=== PATIENT | female | born 1945 | race Caucasian/White ===

== ENCOUNTER 2024-12-09 07:45 | Inpatient (IN) | payer OTHER ==
[2024-12-09] VITALS (12 sets, daily range): BP systolic 91–100; BP diastolic 50–54; PULSE 78–96; RESP 16–21; TEMP 96–97.9; O2SAT 91–100
[~2024-12-09] VITALS: Ht 167.6 cm; Wt 52.3 kg
--- NOTE | 2024-12-09 08:03 | ELECTROCARDIOGRAPH REPORT ---
[facility] Test Date: 2024-12-09 Test Time: 08:00:32 Pat Name: MALLORY HERNANDEZ Department: SHORT STAY 1ST FLOOR Room: ED 1 Gender: F Cw Operator: NAOMI : 1945 Requested By: INDERJIT FISH Order Number: [id number] Reading MD: Dr. Cheryl Lyons Measurements Intervals [place] Rate: 92 P: 82 WA: 119 QRS: 72 QRSD: 126 T: 32 QT: 384 QTc: 476 Interpretive Statements Sinus rhythm Borderline short WA interval Consider right atrial enlargement IVCD, consider atypical LBBB Electronically Signed On 12-09-2024 13:16:[address] Cheryl Lyons Please click the below link to view image of tracing.
--- NOTE | 2024-12-09 08:04 | Physician Documentation ---
History of Present Illness ~ Chief Complaint: Shortness of Breath Stated Complaint: COUGH Time Seen by MD: 07:54 HPI 79-year-old female who presents to the emergency department complaining of cough and congestion, patient has some discomfort in the right chest, history of sm oking without diagnosis of COPD or asthma, she has had symptoms for several days with increasing cough and shortness of breath. Timing/Duration: days Severity: moderate Activities at Onset: light exertion Risk Factors: none History Of: COPD, not using steroids; Denies: currently on inhaled B2, currently on steroids, not using inhaled B2 Prehospital Care: no prehospital care Prior Episode/Exposure: no prior episodes Modifiying Factors: Improves with: exertion Associated Symptoms: cough Discomfort Quality/Severity: moderate Chest Pain Location: chest Cough Severity: Reports: mild Medication Reconciliation Allergies: Coded Allergies: lactose (Verified Allergy, Severe, 12/09/24) Scheduled Amlodipine Besylate (Amlodipine Besylate), 1 TAB PO DAILY, (Reported) Atorvastatin Calcium (Atorvastatin Calcium), 1 TAB PO DAILY, (Reported) Miscellaneous Medications Lisinopril/Hydrochlorothiazide (Lisinopril-Hctz 20-12.5 mg Tab), 10 MG PO, (Reported) Discontinued Medications Lisinopril (Lisinopril), 1 TAB PO DAILY, (Reported) Discontinued Reason: Other Review of Systems All Other Systems at this time: Reviewed and Negative Constitutional: Reports: see HPI Respiratory: Reports: cough, shortness of breath, SOB with exertion, SOB at rest Cardiovascular: Reports: chest pain Physical Exam Vital Signs: Temperature: 99.9, Source: Oral, Heart Rate: 100, Respiratory Rate: 18, BP: 127/67, Pulse Oximetry: 93, Weight: 52.270 Oxygen Flow Rate: 4.0 Pulse Oximetry Reflects: hypoxemia General Appearance: alert, ill-appearing, moderate distress Neck: normal inspection EENT: normal ENT inspection Respiratory: respiratory distress, wheezing Chest: no accessory muscle use Cardiovascular: tachycardia Extremities: normal inspection Skin: pallor Psychiatric: appropriate Lymphatic: no adenopathy Sepsis Screening Reassessment Date: December 09, 2024 Reassessment Time: 08:03 Vitals Signs Review 8:04 a.m. Cardiology Exam: tachycardia Progress Results/Orders Results/Orders Orders - INDERJIT FISH DO Chest,Single View (12/09/24 07:57) Monitor (12/09/24 07:57) Saline Lock (12/09/24 07:57) Oxygen (12/09/24 07:57) Electrocardiogram (12/09/24 07:57) Covid19 Binax Poc Result Entry (12/09/24 07:57) * Rt Notification Q1H (12/09/24 07:59) Culture Blood (12/09/24 08:51) Page Hospitalist (12/09/24 08:57) Fill Out Med Reconciliation (12/09/24 08:57) Completed Orders - INDERJIT FISH DO Chest,Single View (12/09/24 07:57) Cbc/Diff (12/09/24 07:57) PBNP (12/09/24 07:57) Electrocardiogram (12/09/24 07:57) CMP (12/09/24 07:57) Hs Troponin I W Calculations (12/09/24 07:57) Hs Troponin I W Calculations (12/09/24 09:57) Hs Troponin I W Calculations (12/09/24 10:57) Albuterol 2.5mg/3ml Nebule (Proventil 2. (12/09/24 08:00) Ipratropium Nebule (Atrovent Nebule) (12/09/24 08:00) Ceftriaxone/D4h-Ndygxvev 1gm (Rocephin 1 (12/09/24 08:55) Azithromycin Tablet (Zithromax Tablet) (12/09/24 08:55) Lacticsepsis (12/09/24 08:51) Furosemide Inj (Lasix Inj) (12/09/24 08:55) Lactic,2hr (12/09/24 10:35) Medications Received in ER Medications (Trade) Dose Ordered Sig/Claudia Route PRN Reason Start Time Stop Time Status Last Admin Dose Admin Sodium Chloride 1,000 ml @ 100 mls/hr Q10H IV 12/09/24 10:45 12/09/24 11:19 100 MLS/HR Vital Signs 12/09/24 12/09/24 12/09/24 12/09/24 07:46 07:59 08:00 08:07 Temp 99.9 Pulse 97 100 99 Resp 25 18 20 B/P (MAP) 121/101 127/67 (87) 127/67 (87) Pulse Ox 92 93 91 O2 Flow Rate 4.0 4.0 12/09/24 12/09/24 12/09/24 12/09/24 08:29 08:37 09:00 10:00 Pulse 86 85 90 95 Resp 21 16 24 18 B/P (MAP) 108/41 (63) 98/64 (75) Pulse Ox 97 100 96 94 O2 Delivery Room Air* Room Air* O2 Flow Rate 0 0 4.0 4.0 FiO2 21 21 12/09/24 10:40 Pulse 90 Resp 24 B/P (MAP) 98/64 (75) Pulse Ox 96 O2 Flow Rate 4.0 Laboratory Tests Test 12/09/24 08:00 12/09/24 08:19 12/09/24 09:02 White Blood Count 16.4 H Red Blood Count 4.64 Hemoglobin 14.1 Hematocrit 41.5 Mean Corpuscular Volume 89.5 Mean Corpuscular Hemoglobin 30.3 Mean Corpuscular Hemoglobin Concent 33.8 Red Cell Distribution Width 14.3 Platelet Count 224 Mean Platelet Volume 8.7 Neutrophils (%) (Auto) 86.7 H Lymphocytes (%) (Auto) 4.3 L Monocytes (%) (Auto) 8.7 Eosinophils (%) (Auto) 0.1 Basophils (%) (Auto) 0.2 Neutrophils # (Auto) 14.2 H Lymphocytes # (Auto) 0.7 L Monocytes # (Auto) 1.4 H Eosinophils # (Auto) 0.0 Basophils # (Auto) 0.0 CBC Comment Sodium Level 132 L Potassium Level 3.6 Chloride Level 94 L Carbon Dioxide Level 29.4 Anion Gap 9 Blood Urea Nitrogen 10 Creatinine 0.98 H Estimated GFR/1.73 m2 55 BUN/Creatinine Ratio 10.2 Glucose Level 133 H Calcium Level 9.1 Total Bilirubin 0.8 Aspartate Amino Transf (AST/SGOT) 21 Alanine Aminotransferase (ALT/SGPT) 26 Alkaline Phosphatase 103 Troponin I High Sensitivity 27 27 Pro-B-Type Natriuretic Peptide 1093 H Total Protein 7.1 Albumin 3.2 L Globulin 3.9 Albumin/Globulin Ratio 0.8 L Chemistry Comments SARS-CoV-2 Antigen (Rapid) Negative Prothrombin Time 10.9 INR International Normalized Ratio 1.1 Activated Partial Thromboplast Time 31 D-Dimer 0.97 H D-Dimer Comment Coagulation Comments Hemoglobin A1c 5.8 Lactic Acid Level 2.3 H Phosphorus Level 2.3 Magnesium Level 1.8 Troponin I High Sens Percent Delta 0 Troponin I Hi Sens Absolute Change 0 Microbiology Date/Time Source Procedure Growth Status 12/09/24 09:08 Blood Arm Left Blood Culture - Preliminary NEGATIVE (LESS THAN 24 HOURS) Resulted Re-Evaluation Re-evaluation : Progress Elevated BNP, troponin and repeat troponin pending as is BNP x-rays has not been performed yet. Suspect this is secondary to demand ischemia in the setting of likely pneumonia with CHF. Await for repeat troponin Elevated BNP 1093, troponin 27, x-ray appears to have a right lower lobe infiltrate hypoxemia improved after DuoNeb and oxygen, plan is to have the patient admitted to the hospital for hypoxic respiratory failure in the setting of the acute pneumonia, she was given a dose of Lasix in the emergency department as well for the elevated BNP presuming there could be some underlying heart failure as well. Plan is to admit to the hospital for further evaluation including treatment for pneumonia with hypoxic respiratory failure. EKG/XRAY/CT/US/VASC/MRI EKG : Indication: shortness of breath Additional Comment Sinus rhythm rate of 92, normal axis, low voltage, wide complex QRS, consider left bundle branch block, Q-wave in aVL, repolarization abnormality in V3 V2 ST depressions in lead three and AVF consider inferior ischemia. Abnormal EKG. Chest X-Ray : Additional Comments [address] [address] DIAGNOSTIC RADIOLOGY Patient: MALLORY HERNANDEZ Medical Record: [id number] [facility] : 1945, Age: 79 Sex: Female Location: ER Patient Status: REG ER Service Date/Time: 12/09/24 0757 Ordering Physician: INDERJIT FISH DO Exam: CHEST,SINGLE VIEW DI CHEST,SINGLE VIEW, HISTORY: CP COMPARISON: None None TECHNICAL DATA: 1 view of the chest was obtained. FINDINGS: Lines and tubes: None Cardiomediastinal silhouette: normal Pulmonary vasculature: normal Lung expansion: normal Lung airspace: normal Lung interstitium: normal Pleura: normal Pneumothorax: no Bones: Unremarkable Other: no IMPRESSION: No acute intrathoracic abnormality. Electronically Signed by:ADAM WHITE MD Date & Time: 12/09/24828 Dictated by: ADAM WHITE MD Dictation date and time: 12/09/24815 Primary Care Provider: NO PRIMARY CARE PROVIDER cc: INDERJIT FISH DO ~ Heart Score: Heart Score Response (Comments) Value History Moderate Suspicious 1 EKG Repolarization Disturb 1 Age >65 2 Risk Factors No known risk factors 0 Troponin Normal limit 0 Total 4 Medical Decision Making Differential Dx:Considerations: Include: asthma, bronchitis, CHF, COPD Departure Disposition: 09 ADMITTED INPATIENT Impression: Primary Impression: Pneumonia Condition: Guarded Referrals: NO PRIMARY CARE PROVIDER (PCP) Critical Care Note Total Time (mins): 40 Critical Care Note Critical care time exclusive of all other billable procedures critical care time spent managing impending respiratory failure in the setting of hypoxemia and possible acute heart failure, critical care time spent managing lab abnormalities impending respiratory failure. Signature Scribe Signature: None Attestation: Dictated by myself INDERJIT FISH DO December 09, 2024 08:04
[2024-12-09 08:19] LABS: BASOPHILS % (AUTO) 0.2 % (0-1); EOSINOPHILS % (AUTO) 0.1 % (0-6); HEMATOCRIT 41.5 % (35.0-45.0); HEMOGLOBIN 14.1 g/dl (12.0-16.0); LYMPHOCYTES # (AUTO) 0.7 X10'3 (1.1-4.8); LYMPHOCYTES % (AUTO) 4.3 % (21-51); MEAN CORPUSCULAR HEMOGLOBIN 30.3 PG (27.0-31.0); MEAN CORPUSCULAR HGB CONC 33.8 g/dL (33.0-36.5); MEAN CORPUSCULAR VOLUME 89.5 FL (78-98); MEAN PLATELET VOLUME 8.7 FL (7.4-10.4); MONOCYTES # (AUTO) 1.4 X10'3 (0-0.9); MONOCYTES % (AUTO) 8.7 % (2-12); NEUTROPHILS # (AUTO) 14.2 X10'3 (1.8-7.7); NEUTROPHILS % (AUTO) 86.7 % (42-75); PLATELET COUNT 224 X10'3 (140-440); RED BLOOD COUNT 4.64 X10'6 (4.20-5.60); RED CELL DISTRIBUTION WIDTH 14.3 % (11.5-14.5); WHITE BLOOD COUNT 16.4 X10'3 (4.5-11.0)
[2024-12-09] MEDS: albuterol 2.5 MG/3 ML nebule NEB ONE (08:28)
[2024-12-09] MEDS: ipratropium 0.5 MG/2.5ML nebule IH ONE (08:28)
[2024-12-09 08:30] LABS: ALANINE AMINOTRANSFERASE 26 U/L (12-78); ALBUMIN 3.2 G/DL (3.4-5.0); ALBUMIN/GLOBULIN RATIO 0.8 (1.1-1.5); ALKALINE PHOSPHATASE 103 IU/L (46-116); ANION GAP 9 (8-16); ASPARTATE AMINO TRANSFERASE 21 U/L (10-37); BILIRUBIN,TOTAL 0.8 MG/DL (0.1-1.0); BLOOD UREA NITROGEN 10 MG/DL (7-18); BUN/CREATININE RATIO 10.2 (10.0-20.0); CALCIUM 9.1 MG/DL (8.5-10.1); CHLORIDE 94 MMOL/L (99-107); CREATININE 0.98 MG/DL (0.40-0.90); GLUCOSE 133 MG/DL (70-104); POTASSIUM 3.6 MMOL/L (3.5-5.1); SODIUM 132 MMOL/L (135-145); TOTAL CARBON DIOXIDE 29.4 MMOL/L (24-32); TOTAL PROTEIN 7.1 G/DL (6.4-8.2); eCRCL 39 ML/MIN; eGFR 55 ML/MIN
--- NOTE | 2024-12-09 08:31 | RADIOLOGY REPORT ---
DI CHEST,SINGLE VIEW, HISTORY: CP COMPARISON: None None TECHNICAL DATA: 1 view of the chest was obtained. FINDINGS: Lines and tubes: None Cardiomediastinal silhouette: normal Pulmonary vasculature: normal Lung expansion: normal Lung airspace: normal Lung interstitium: normal Pleura: normal Pneumothorax: no Bones: Unremarkable Other: no IMPRESSION: No acute intrathoracic abnormality.
[2024-12-09 08:37] LABS: PRO BRAIN NATRIURETIC PEPTIDE 1093 PG/ML (0-450)
[2024-12-09] MEDS: furosemide 10 MG/1 ML 10ml inj IV ONE (09:07)
[2024-12-09] MEDS: azithromycin 250mg tablet PO ONE (09:07)
[2024-12-09] MEDS: CefTRIAXone/D5W-Rocephin 1gm 50 ML IV ONE (09:08)
[2024-12-09] MEDS ORDERED: ATOR20TA66 PO (09:14)
[2024-12-09] MEDS ORDERED: AMLO5TAB16 PO (09:14)
[2024-12-09] MEDS ORDERED: LISI1TAB51 PO (09:14)
[2024-12-09] MEDS ORDERED: LISI20TA28 PO (09:14)
--- NOTE | 2024-12-09 09:18 | HISTORY AND PHYSICAL ---
History & Physical Providers to Complaint, cough shortness of breath fever ~ History of Present Illness Reason for Admit\Complaint: As above History of Present Illness This is a 79-year-old female , with history of chronic tobacco abuse including currently, history of COPD secondary to tobacco abuse, history of chronic kidney disease CHF ejection fraction unknown, hypertension poor control, dyslipidemia, malnutrition BMI 18, presented today to emergency department chief complaint cough associated with fever and shortness of breath; in addition this is the patient, who presents to the emergency department complaining of cough and congestion, patient has some discomfort in the right chest, history of smoking without diagnosis of COPD or asthma, she has had symptoms for several days with increasing cough and shortness of breath., Timing/Duration: days, Severity: m oderate, Activities at Onset: light exertion Risk Factors: none, History Of: COPD, not using steroids; Denies: currently on inhaled B2, currently on steroids, not using inhaled B2, Prehospital Care: no prehospital care Prior Episode/Exposure: no prior episodes, Modifiying Factors: Improves with: exertion Discomfort Quality/Severity: moderate, Chest Pain Location: chest, Cough Severity: Reports: mild. In emergency department she was evaluated by physician was diagnosed with COPD in exacerbation hyponatremia chronic kidney disease CHF hypertension dyslipidemia chronic tobacco abuse including currently, malnutrition and decision was made to admit patient for further evaluation and treatment patient started on IV antibiotics steroids, no additional complaint or concern. Allergies: Coded Allergies: No Known Allergies (Unverified , 12/09/24) Active prescriptions I reviewed reconciled Home Medications Home Medications Active Reported Lisinopril-Hctz 20-12.5 mg Tab (Lisinopril/Hydrochlorothiazide) 20 Mg-12.5 Mg Tablet 10 Mg PO Atorvastatin Calcium 20 Mg Tablet 1 Tab PO DAILY Amlodipine Besylate 5 Mg Tablet 1 Tab PO DAILY Past Medical History Past Medical History As in HPI Past Surgical History Surgical History Comment As in HPI Past Social History Social History Comment Positive for chronic tobacco abuse including currently, deny alcohol illicit drug use, live with the family good social support Health Maintenance Health Maintenance Noncontributory ROS ROS Constitutional : Positive for fever , no chills, or weakness. No diaphoresis. Allergic/Immunologic, no lymphadenopathy, no hives, no skin eruptions. Eyes, no recent visual changes, no eye pain, no photophobia. Ears, nose, mouth, throat, no sore throat, no nosebleed, no ear pain. Cardiovascular, no palpitations, skipped beats, chest pain, no peripheral edema, Respiratory, patient has dyspnea, orthopnea, cough, no hemoptysis, chest wall pain. Gastrointestinal, no abdominal pain, nausea, vomiting, constipation or diarrhea. : no dysuria, hematuria, pelvic pain, urethral d/c. Endocrine, no polyuria, polydipsia, recent unintentional weight gain or loss. Hematologic/Lymphatic, no petechiae, no enlarged lymph nodes, no bone pain. Integumentary, no rash, no skin lesions, Musculoskeletal, no muscle aches, or pain, no muscle cramps, no recent change in gait Neurological, no dizziness, no headache, no syncope, no paresthesia. Psychiatric, no delusions, visual hallucinations, or hearing hallucinations. ROS - in rest is as in HPI. Exam Vitals: Vital Signs Date Time Temp Pulse Resp B/P (MAP) Pulse Ox O2 Delivery O2 Flow Rate FiO2 12/09/24 08:37 85 16 100 Room Air* 0 21 12/09/24 08:07 12/09/24 07:46 99.9 Vital signs, stable ,afebrile. Pulse Oximetry reflects adequate oxygenation. BMI is 18, weight 52 kg General: well developed, well nourished. Awake , alert, and oriented x4, resting comfortably in the bed, in no acute distress . Skin: Warm, dry, no pallor, no rash or petechiae. HEENT: Atraumatic, normocephalic, EOMI, anicteric sclera B; pink conjunctiva; PERRLA, normal oropharynx, moist oral and nasal mucosa. Tympanic membrane , nose , throat clear. Neck: Trachea midline. Supple, full range of motion, no JVD, bruit , hepatojugular reflex , lymphadenopathy or masses, or other lesions Cardiac: Regular rhythm, regular rate no murmurs, rubs, or gallops. Normal S1 and S2, no S3 noticed. PMI is normal. Respiratory: Equal breath sounds bilaterally, no tachypnea; lungs clear to auscultation bilaterally, no wheezing ,rub or rales, or crackles. Chest wall is symmetric and without deformity. No signs of trauma. Chest wall is nontender. No signs of respiratory distress. Resonance is normal upon percussion bilaterally. Gastrointestinal: Abdomen symmetric, non-distended, soft, non-tender, normal bowel sounds x4 quadrant, normoactive, no hepatosplenomegaly , no masses , no bruit, no flank pain bilaterally. No voluntary guarding, rebound, or rigidity. No tenderness to percussion. No pulsatile masses. Equal femoral pulses. No Portillo's sign or McBurney point tenderness. Back; no CVA tenderness bilaterally, no deformities. Neck and back are without deformity as well. No tenderness noted on palpation of the spinous processes. Spinous processes are midline. Cervical, thoracic, and lumbar paraspinal muscles are not tender and are without spasm. Musculoskeletal: Extremities, normal range of motion, non-tender, muscle strength 5/5 x 4. Negative Homans signs bilaterally on lower extremity. Distal pulses full symmetrical, no clubbing, cyanosis , edema. Neurological: Speech is clear, alert, and oriented x 4. No motor or sensory deficit, deep tendon reflexes normal, cerebellar intact. Cranial nerves II-XII intact. Psych: Alert and or appropriate, normal affect. Vascular: Good distal pulses, which are equal x4; capillary refill less than 2 seconds. Lymphatic, no lymphadenopathy. Diagnostic Data Last Recorded Lab Results: 12/09/24 0800 12/09/24 0800 Advance Care Planning Advanced Care plannin - 30 Minutes Additional Plan Assessment COPD exacerbation Hyponatremia CHF diastolic in exacerbation Hypertension poor control Dyslipidemia Chronic tobacco abuse including currently Malnutrition BMI 18 Chronic kidney disease Plan IV fluids steroids antibiotics SVN DuoNeb, incentive spirometry Nutrition consult Echocardiography pending Consulted for 5 minute to stop using tobacco patient agrees started to nicotine patch Replace electrolytes Additional lab work pending Serial troponin EKG I reconciled home medications DVT gastropathy prophylaxis addressed Sepsis Screening Reassessment Date: December 09, 2024 Reassessment Time: 08:03 Date of Service: December 09, 2024 Billing Provider: VIVI NUR MD Common Visit Codes: [id number] INP/OBS CARE (HIGH) Secondary Visit Codes: [id number] CHNG SMOKING 3-10M, [id number] CARE PLAN 30 MINUTES VIVI NUR MD December 09, 2024 09:18
[2024-12-09] MEDS ORDERED: bisacodyl 10mg suppository rectal RC PRN (10:45)
[2024-12-09] MEDS ORDERED: ondansetron 4mg rapidly disintigrating tab PO PRN (10:45)
[2024-12-09] MEDS ORDERED: HYDROcodone/acetaminophen 5mg/325mg tablet PO PRN (10:45)
[2024-12-09] MEDS ORDERED: magnesium Cl slow-release 64mg tablet PO PRN (10:45)
[2024-12-09] MEDS ORDERED: magnesium sulf-water 2g/50mL 50 ML IV PRN (10:45)
[2024-12-09] MEDS ORDERED: potassium Cl 20 mEq SR tablet PO PRN (10:45)
[2024-12-09] MEDS ORDERED: magnesium sulf-water 4G/100mL 100 ML IV PRN (10:45)
[2024-12-09] MEDS ORDERED: ondansetron/PF 4mg/2ml inj IV PRN (10:45)
[2024-12-09] MEDS ORDERED: potassium Cl 40MEQ/1/2NS 520ml 520 ML IV PRN (10:45)
[2024-12-09] MEDS ORDERED: magnesium hydroxide 30ml (MOM) UD suspension PO PRN (10:45)
[2024-12-09] MEDS ORDERED: diphenhydrAMINE 25mg capsule PO PRN (10:45)
[2024-12-09] MEDS ORDERED: acetaminophen 650mg rectal suppository RC PRN (10:45)
[2024-12-09] MEDS ORDERED: diphenhydrAMINE 50 mg/ml inj IV PRN (10:45)
[2024-12-09] MEDS ORDERED: mag hydrox/Alum hydrox/simeth 30ml oral suspension PO PRN (10:45)
[2024-12-09] MEDS ORDERED: morphine 2 MG/ML inj. syringe IV PRN ×2 (10:45)
[2024-12-09] MEDS ORDERED: acetaminophen 325mg tablet PO PRN ×2 (10:45)
[2024-12-09 11:09] LABS: MAGNESIUM 1.8 MG/DL (1.5-2.4); PHOSPHORUS 2.3 MG/DL (2.3-4.5)
[2024-12-09 11:10] LABS: APTT 31 SECONDS (22-32); INR 1.1 INR; PROTHROMBIN TIME 10.9 SECONDS (9.0-12.0)
[2024-12-09 11:16] LABS: HEMOGLOBIN A1C 5.8 % (4.5-6.2)
[2024-12-09] MEDS: normal saline 1000ml 1,000 ML IV SCH (11:19)
[2024-12-09 11:50] LABS: D-DIMER 0.97 MG/L FEU (0-0.50)
[2024-12-09] MEDS: ipratropium/albuterol 3ml nebule NEB SCH (12:44)
[2024-12-09 13:23] LABS: BILIRUBIN,URINE NEGATIVE (Neg); CLARITY,URINE CLEAR (Clear); COLOR,URINE YELLOW (Yellow); GLUCOSE, URINE NEGATIVE (Neg); KETONES,URINE NEGATIVE (Neg); LEUKOCYTE ESTERASE ,URINE NEGATIVE (Neg); OCCULT BLOOD,URINE SMALL (Neg); PROTEIN,URINE NEGATIVE (Neg); UROBILINOGEN,URINE 0.2 E.U/dL (0.2-1.0)
[2024-12-09 13:30] LABS: NITRITES, URINE NEGATIVE (Neg); UA COLLECTION TYPE URINAL
[2024-12-09 13:33] LABS: WBC,URINE 0-4 /HPF (0-4)
[2024-12-09 13:34] LABS: BACTERIA,URINE FEW /HPF (Neg); MUCUS STRANDS FEW /LPF (Neg); SQUAMOUS EPITHELIAL CELL,UR FEW /LPF (FEW)
[2024-12-09] MEDS: methylPREDNISolone sod succ/PF 40mg inj. IV SCH (15:22)
[2024-12-09] MEDS: heparin, porcine 5000 units/ml vial SQ SCH (19:53)
[2024-12-09] MEDS: docusate sod 100mg capsule PO SCH (19:57)
[2024-12-09] MEDS: K and/or MAG REPLACEMENT MC SCH (20:00)
[2024-12-09] MEDS ORDERED: temazepam 15mg capsule PO PRN (21:00)
[2024-12-10] VITALS (10 sets, daily range): BP systolic 95–107; BP diastolic 44–52; PULSE 70–100; RESP 16–20; TEMP 96.9–98; O2SAT 94–96
[2024-12-10 06:06] LABS: BASOPHILS % (AUTO) 0.1 % (0-1); EOSINOPHILS % (AUTO) 0 % (0-6); HEMOGLOBIN 12.8 g/dl (12.0-16.0); LYMPHOCYTES # (AUTO) 0.4 X10'3 (1.1-4.8); LYMPHOCYTES % (AUTO) 3.9 % (21-51); MEAN CORPUSCULAR HEMOGLOBIN 30.4 PG (27.0-31.0); MEAN CORPUSCULAR HGB CONC 33.7 g/dL (33.0-36.5); MEAN CORPUSCULAR VOLUME 90.2 FL (78-98); MEAN PLATELET VOLUME 9.1 FL (7.4-10.4); MONOCYTES # (AUTO) 0.2 X10'3 (0-0.9); MONOCYTES % (AUTO) 2.3 % (2-12); NEUTROPHILS % (AUTO) 93.7 % (42-75); PLATELET COUNT 202 X10'3 (140-440); RED BLOOD COUNT 4.21 X10'6 (4.20-5.60); RED CELL DISTRIBUTION WIDTH 14.3 % (11.5-14.5); WHITE BLOOD COUNT 10.7 X10'3 (4.5-11.0)
[2024-12-10 06:21] LABS: ALANINE AMINOTRANSFERASE 24 U/L (12-78); ALBUMIN 2.6 G/DL (3.4-5.0); ALBUMIN/GLOBULIN RATIO 0.7 (1.1-1.5); ALKALINE PHOSPHATASE 92 IU/L (46-116); ANION GAP 9 (8-16); ASPARTATE AMINO TRANSFERASE 13 U/L (10-37); BILIRUBIN,TOTAL 0.3 MG/DL (0.1-1.0); BLOOD UREA NITROGEN 13 MG/DL (7-18); CALCIUM 8.3 MG/DL (8.5-10.1); CHLORIDE 95 MMOL/L (99-107); CHOL/HDL RATIO 2.6 (0.00-4.99); CHOLESTEROL 110 MG/DL (0-200); CREATININE 0.93 MG/DL (0.40-0.90); GLUCOSE 171 MG/DL (70-104); HDL CHOLESTEROL 43 MG/DL (35-60); LDL CHOLESTEROL 51 MG/DL (50-100); MAGNESIUM 1.9 MG/DL (1.5-2.4); POTASSIUM 3.1 MMOL/L (3.5-5.1); SODIUM 134 MMOL/L (135-145); TOTAL CARBON DIOXIDE 30.1 MMOL/L (24-32); TOTAL PROTEIN 6.3 G/DL (6.4-8.2); TRIGLYCERIDES 46 MG/DL (20-135); eCRCL 41 ML/MIN; eGFR 58 ML/MIN
[2024-12-10] MEDS: amLODIPine 5mg tablet PO SCH (08:00)
[2024-12-10] MEDS: pantoprazole 40mg Tablet.DR PO SCH (08:18)
[2024-12-10] MEDS: atorvastatin 20mg tablet PO SCH (08:19)
[2024-12-10] MEDS: potassium Cl 20 mEq SR tablet PO PRN (08:19)
[2024-12-10] MEDS: nicotine 21mg patch - 24 hr TD SCH (08:22)
[2024-12-10] MEDS: azithromycin/NS 500mg/250ml 250 ML IV SCH (08:53)
[2024-12-10] MEDS: CefTRIAXone/D5W-Rocephin 1gm 50 ML IV SCH (08:54)
--- NOTE | 2024-12-10 15:54 | PROGRESS NOTE ---
Daily Progress Note Providers to CC Feels better today, less shortness of breath less cough ~ Central Line/PICC still needed: No Child-Non Protocol Child Indications Met/Not Met: F/C Indications Not Met Antibiotic Timeout Antibiotic Ordered?: Yes MRSA Education MRSA Education Provided to pt: Yes Subjective As above Objective Vital Signs Date Time Temp Pulse Resp B/P (MAP) Pulse Ox O2 Delivery O2 Flow Rate FiO2 12/10/24 12:23 82 16 Nasal Cannula 1.0 12/10/24 12:14 94 24 12/10/24 11:00 97.7 105/44 (64) Vital signs, stable ,afebrile. Pulse Oximetry reflects adequate oxygenation on 1 L nasal cannula oxygen General: well developed, well nourished. Awake , alert, and oriented x4, resting comfortably in the bed, in no acute distress . Skin: Warm, dry, no pallor, no rash or petechiae. HEENT: Atraumatic, normocephalic, EOMI, anicteric sclera B; pink conjunctiva; PERRLA, normal oropharynx, moist oral and nasal mucosa. Tympanic membrane , nose , throat clear. Neck: Trachea midline. Supple, full range of motion, no JVD, bruit , hepatojugular reflex , lymphadenopathy or masses, or other lesions Cardiac: Regular rhythm, regular rate no murmurs, rubs, or gallops. Normal S1 and S2, no S3 noticed. PMI is normal. Respiratory: Equal breath sounds bilaterally, no tachypnea; lungs clear to auscultation bilaterally, no wheezing ,rub or rales, or crackles. Chest wall is symmetric and without deformity. No signs of trauma. Chest wall is nontender. No signs of respiratory distress. Resonance is normal upon percussion bilaterally. Gastrointestinal: Abdomen symmetric, non-distended, soft, non-tender, normal bowel sounds x4 quadrant, normoactive, no hepatosplenomegaly , no masses , no bruit, no flank pain bilaterally. No voluntary guarding, rebound, or rigidity. No tenderness to percussion. No pulsatile masses. Equal femoral pulses. No Portillo's sign or McBurney point tenderness. Back; no CVA tenderness bilaterally, no deformities. Neck and back are without deformity as well. No tenderness noted on palpation of the spinous processes. Spinous processes are midline. Cervical, thoracic, and lumbar paraspinal muscles are not tender and are without spasm. Musculoskeletal: Extremities, normal range of motion, non-tender, muscle strength 5/5 x 4. Negative Homans signs bilaterally on lower extremity. Distal pulses full symmetrical, no clubbing, cyanosis , edema. Neurological: Speech is clear, alert, and oriented x 4. No motor or sensory deficit, deep tendon reflexes normal, cerebellar intact. Cranial nerves II-XII intact. Psych: Alert and or appropriate, normal affect. Vascular: Good distal pulses, which are equal x4; capillary refill less than 2 seconds. Lymphatic, no lymphadenopathy. Result Diagram: 12/10/2451612/10/24516 Coagulation Studies Laboratory Tests Test 12/09/24 09:02 Prothrombin Time 10.9 SECONDS (9.0-12.0) INR International Normalized Ratio 1.1 INR Activated Partial Thromboplast Time 31 SECONDS (22-32) D-Dimer 0.97 MG/L FEU (0-0.50) H D-Dimer Comment Coagulation Comments Problem\Assessment\Plan Assessment COPD exacerbation, pneumonia ruled out Hyponatremia Chronic CHF diastolic in exacerbation Hypertension poor control Dyslipidemia Chronic tobacco abuse including currently Malnutrition mild, BMI 18 Chronic kidney disease Plan IV fluids steroids antibiotics SVN DuoNeb, incentive spirometry Nutrition consult Echocardiography pending Consulted for 5 minute to stop using tobacco patient agrees started to nicotine patch Replace electrolytes Additional lab work pending Serial troponin EKG I reconciled home medications DVT gastropathy prophylaxis addressed Sepsis Screening Reassessment Date: December 10, 2024 Reassessment Time: 08:03 Date of Service: December 10, 2024 Billing Provider: VIVI NUR MD Common Visit Codes: [id number] INP/OBS CARE(HIGH) VIVI NUR MD December 10, 2024 15:54
--- NOTE | 2024-12-10 17:03 | CARDIOLOGY REPORT ---
APPROVED REPORT EXAM: Comprehensive 2D, Doppler, and color-flow Echocardiogram. Patient Location: 351 A Blood Pressure: 107/52 mmHg Heart Rate: 76 bpm Rhythm: Sinus Rhythm Indications Congestive Heart Failure Hx of Hypertension Hx of COPD CKD Cough Current Everyday Smoker Cnc Machine Programmer: None Previous echo: None 2D Dimensions RVDd 3.4 cm LA Diam3.9 cm RA Minor3.8 cmLVOT Diameter 1.84 (1.8-2.4cm) IVC 20.75 mmCO 3.0 L/min M-Mode Dimensions RVDd 2.60 (2.1-3.2cm) Left Atrium(MM) 3.33 (2.5-4.0cm) IVSd 0.99 (0.7-1.1cm) LVDd 3.81 (4.0-5.6cm) Aortic Root 3.11 (2.2-3.7cm) PWd 1.07 (0.7-1.1cm) Aortic Cusp Exc 1.39 (1.5-2.0cm) IVSs 1.54 cm MV EPSS 0.5 (<0.5cm) LVDs 2.31 (2.0-3.8cm) FS (%) 39 % PWs 1.32 cm ESV(Teich) 16.7 ml LVEF(%) 70 (>50%) Aortic Valve AoV Peak Manuel. 183.4 cm/s AoV VTI 40.4 cm AO Peak GR. 13.5 mmHg AO Mean GR. 7 mmHg LVOT VTI 37.86 cm LVOT Peak Manuel. 160.5 cm/s DAVID(VTI)/BSA 2.51 cm2/m2 DAVID (VTI) 2.51 cm2 Mitral Valve MV E Velocity 88.4 cm/s MV Peak Gr. 5 mmHg MV DECEL TIME 212 ms MV A Velocity 81.9 cm/s MV Mean Gr. 2 mmHg MV PHT 60 ms E/A Ratio 1.1 MVA (PHT) 3.67 cm2 MV XEhm991.2 cm/sMV VMean56.0 cm/s MVA VTI4.10 cm2MV VTI24.7 cm TDI Lateral E' P. V9.93 cm/s E/Lateral E' 8.9 Tricuspid Valve TR P. Velocity 293 cm/s RAP ESTIMATE 15 mmHg TR Peak Gr. 34 mmHg RVSP 49 mmHg LEFT VENTRICLE The LV is reduced in size with normal wall thickness. Overall systolic function is normal. Overall LV EF is 65-70%. RIGHT VENTRICLE Right ventricle is mildly dilated with normal function. Estimated PA systolic pressure is 49 mmHg. ATRIA The left atrium size is normal. The right atrium size is normal. AORTIC VALVE Trileaflet AV appears sclerotic without stenosis or insufficiency. MITRAL VALVE Mild MV annular calcification without stenosis. Trace regurgitation. TRICUSPID VALVE TV appears structurally normal with trace regurgitation. PULMONIC VALVE Normal PV without stenosis, physiologic insufficiency. GREAT VESSELS The aortic root is normal in size. IVC is dilated and collapses less than 50% with inspiration. PERICARDIUM Normal pericardium. No pericardial effusion seen. Other Information Study Quality: Adequate Conclusion The LV is reduced in size with normal wall thickness. Overall systolic function is normal. Overall LVEF is 65-70%. Right ventricle is mildly dilated with normal function. Estimated PA systolic pressure is 49 mmHg. The left atrium size is normal. The right atrium size is normal. Trileaflet AV appears sclerotic without stenosis or insufficiency. Mild MV annular calcification without stenosis. Trace regurgitation. TV appears structurally normal with trace regurgitation. Normal pericardium. No pericardial effusion seen.
[2024-12-11 04:58] LABS: BASOPHILS % (AUTO) 0 % (0-1); EOSINOPHILS % (AUTO) 0 % (0-6); HEMOGLOBIN 11.7 g/dl (12.0-16.0); LYMPHOCYTES # (AUTO) 0.6 X10'3 (1.1-4.8); LYMPHOCYTES % (AUTO) 3.3 % (21-51); MEAN CORPUSCULAR HEMOGLOBIN 30.3 PG (27.0-31.0); MEAN CORPUSCULAR HGB CONC 33.5 g/dL (33.0-36.5); MEAN CORPUSCULAR VOLUME 90.4 FL (78-98); MEAN PLATELET VOLUME 9.1 FL (7.4-10.4); MONOCYTES # (AUTO) 0.9 X10'3 (0-0.9); NEUTROPHILS # (AUTO) 16.3 X10'3 (1.8-7.7); NEUTROPHILS % (AUTO) 91.7 % (42-75); PLATELET COUNT 228 X10'3 (140-440); RED BLOOD COUNT 3.87 X10'6 (4.20-5.60); RED CELL DISTRIBUTION WIDTH 14.5 % (11.5-14.5); WHITE BLOOD COUNT 17.8 X10'3 (4.5-11.0)
[2024-12-11 05:14] LABS: ALANINE AMINOTRANSFERASE 53 U/L (12-78); ALBUMIN 2.5 G/DL (3.4-5.0); ALBUMIN/GLOBULIN RATIO 0.8 (1.1-1.5); ALKALINE PHOSPHATASE 91 IU/L (46-116); ANION GAP 5 (8-16); ASPARTATE AMINO TRANSFERASE 40 U/L (10-37); BILIRUBIN,TOTAL 0.2 MG/DL (0.1-1.0); BLOOD UREA NITROGEN 15 MG/DL (7-18); CALCIUM 8.3 MG/DL (8.5-10.1); CHLORIDE 104 MMOL/L (99-107); CREATININE 0.79 MG/DL (0.40-0.90); GLUCOSE 145 MG/DL (70-104); POTASSIUM 4.5 MMOL/L (3.5-5.1); SODIUM 136 MMOL/L (135-145); TOTAL CARBON DIOXIDE 26.7 MMOL/L (24-32); TOTAL PROTEIN 5.7 G/DL (6.4-8.2); eCRCL 48 ML/MIN; eGFR 70 ML/MIN
[2024-12-11 06:00] VITALS: BP 110/63; PULSE 70; RESP 20; TEMP 97.5; O2SAT 97
[2024-12-11 08:11] VITALS: PULSE 87; RESP 16; O2SAT 94
[2024-12-11] MEDS ORDERED: methylPREDNISolone sod succ/PF 40mg inj. IV SCH ×2 (08:40→10:17)
[2024-12-11] MEDS ORDERED: iohexol 350MG/ML 100ml bottle IV ONE (08:57)
[2024-12-11] MEDS ORDERED: methylPREDNISolone sod succ 125mg/2ml vial IV SCH ×2 (09:57→10:26)
[2024-12-11 10:00] VITALS: BP 107/58; PULSE 92; RESP 16; TEMP 97.5; O2SAT 94
--- NOTE | 2024-12-11 10:35 | RADIOLOGY REPORT ---
CTA Chest with intravenous contrast INDICATION: elevated d-dimer, hypoxia COMPARISON: None TECHNIQUE: Multidetector spiral CTA of the chest was performed of the chest with 100 cc of Omnipaque 350 intravenous contrast. PULMONARY ANGIOGRAPHY PROTOCOL was utilized using a bolus-tracking techniqu e centered on the main pulmonary artery. Coronal and sagittal multiplanar and MIP reformats were perf ormed. Radiation Dose : 1. Chest: CTDI volume is 6.5 mGy. Dose-length product is 2353 mGy*cm The dose indicators for CT are the volume Computed Tomography (CT) Dose Index (CTDIvol) and the Dose Length Product (DLP), and are measured in units of mGy and mGy-cm, respectively. These indicators are not patient dose, but values generated from the CT scanner acquisition factors. The report includes radiation exposure data for exposures received during this examination. FINDINGS: Pulmonary artery: No central, lobar or proximal segmental pulmonary embolus. Lower neck: Unremarkable thyroid. Lungs: Respiratory motion limits evaluation. Severe centrilobular emphysema. Hazy ground-glass opacit ies in the right middle lobe. Right lower lobe atelectasis. Central airways: Patent. Pleura: No pneumothorax. Small right pleural effusion. Heart/Vascular Structures: The heart is normal in size. No pericardial effusion. Thoracic aorta is no rmal in caliber. No aneurysm or dissection. Lymph Nodes: No mediastinal or hilar lymphadenopathy. Esophagus:Grossly unremarkable. Musculoskeletal: Unremarkable. Body wall: Unremarkable. Upper abdomen: Unremarkable. IMPRESSION: 1. No evidence of pulmonary embolism. 2. Right middle lobe opacities which could represent pneumonia in the appropriate clinical setting. 3. Severe centrilobular emphysema.
[2024-12-11] MEDS ORDERED: PANT40TA54 PO (14:14)
[2024-12-11] MEDS ORDERED: ALBU18HF2 INH (14:14)
[2024-12-11] MEDS ORDERED: LEVO750T68 PO (14:14)
[2024-12-11] MEDS ORDERED: ASPI81TA52 PO (14:14)
--- NOTE | 2024-12-11 14:27 | DISCHARGE SUMMARY ---
Discharge Summary Providers to CC ~ Discharge Summary Admission Diagnosis: CAP, sepsis Hospital Course DATE OF ADMISSION: 12/09/24 DATE OF DISCHARGE: 12/11/24 Discharge Diagnosis\Comment: Community-acquired pneumonia, covering for Gram-positive and Gram-negative- POA Sepsis 2/2 PNA- POA Acute hypoxic respiratory failure 2/2 PNA- POA Hyponatremia Chronic diastolic heart failure Hypertension Dyslipidemia Chronic tobacco abuse including currently Severe malnutrition, BMI 18 CKD, stage III KATE- unable to exclude COPD, not in exacerbation Operations\Procedures: None Consultants: None Complications: None Condition on DC: Stable New Medications: Albuterol Sulfate (Ventolin Hfa) 90 Mcg Hfa.aer.ad 2 PUFFS INH Q4HPRN PRN for wheezing for 30 Days, #18 GM 0 Refills Aspirin (Aspirin EC) 81 Mg Tablet.dr 1 TAB PO DAILY for 30 Days, #30 TAB Levofloxacin (Levofloxacin) 750 Mg Tablet 750 MG PO DAILY for 7 Days, #7 TAB Pantoprazole Sodium (Pantoprazole Sodium) 40 Mg Tablet.dr 40 MG PO BKF for 30 Days, #30 TAB.SR Continued Medications: Amlodipine Besylate (Amlodipine Besylate) 5 Mg Tablet 1 TAB PO DAILY Atorvastatin Calcium (Atorvastatin Calcium) 20 Mg Tablet 1 TAB PO DAILY Lisinopril/Hydrochlorothiazide (Lisinopril-Hctz 20-12.5 mg Tab) 20 Mg-12.5 Mg Tablet 10 MG PO Discharge Summary: Roxane Jefferson is a 89-year-old female with a past medical history of chronic tobacco abuse, COPD, CKD, CHF, hypertension who presented to the ED with chief complaint of progressively worsening cough and congestion with associated symptoms of fever and shortness of breath. Diagnostic findings were notable for elevated D-dimer, fever, elevated lactic acid, CTA indicating pneumonia. Pertinent negative findings are normal troponin series, unremarkable pBNP, no clinical signs of fluid overload, normal bicarb, negative urinalysis, and CTA negative for pulmonary embolism. TTE was unremarkable with LVEF of 65-70% without significant valvular heart disease. Patient was treated with intravenous fluids, empirical antibiotics, supplemental oxygen. Patient did not experience further complications throughout the entire hospital stay and made a good recovery. Patient was seen and examined on the day of discharge. On day of discharge, vss and labs unremarkable. Last lactic acid normalized. All labs, diagnostic workups, discharge plan discussed with patient in details during visit before discharge. All questions and concerns answered to the best of my professional knowledge. Patient is to be discharged to home to self and to follow-up with PCP within 2 weeks. Physical Exam General: A&Ox3, NAD HEENT: Normocephalic, PERRLA Neck: Supple, trachea midline, no JVD Chest: Clear to auscultation bilaterally Cardiovascular: RRR, S1&S2 GI: Soft and nontender Extremities: No cyanosis/clubbing/or edema VIBRATOR OPERATOR: CN II-XII intact, no focal deficits Musculoskeletal: No paraspinal muscle tenderness, no muscle spasm Skin: Warm and intact *Problems/Diagnosis: (1) Pneumonia Status: Acute Total Time Spent on D/C: > 30 Minutes Date of Service: December 11, 2024 Billing Provider: JASMYNE PARKER Common Visit Codes: 00911-AHD/OBS DISCH DAY >30min JASMYNE PARKER December 11, 2024 14:24
--- NOTE | 2024-12-11 16:07 | VASCULAR REPORT ---
BILATERAL LOWER EXTREMITY VENOUS DOPPLER CLINICAL HISTORY: Elevated D-dimers. Technique: Duplex Doppler evaluation of the deep venous systems of both lower extremities from the co mmon femoral veins to the popliteal veins including color Doppler and spectral/pulsed waveform analys is was performed. COMPARISON: None FINDINGS: The right and left common femoral, superficial femoral, popliteal, posterior tibial and peroneal vein s appear patent with normal augmentation, phasicity, compressibility and color-flow. IMPRESSION: 1. There is no sonographic evidence for DVT in the lower extremities. HS:Y
== END 2024-12-11 14:30 | disposition home or self-care (01) | DRG 871 ==
LOC: ER 07:46 → ED HOLD 10:52 → SUR 3N 14:30
PROVIDERS: ADMIT Family Medicine; ATTEND Family Medicine
PROC: B32T1ZZ Computerized Tomography (CT Scan) of Left Pulmonary Artery using Low Osmolar Contrast (ICD-10-PCS; principal; 2024-12-11)
PROC: B3201ZZ Computerized Tomography (CT Scan) of Thoracic Aorta using Low Osmolar Contrast (ICD-10-PCS; 2024-12-11)
PROC: B32S1ZZ Computerized Tomography (CT Scan) of Right Pulmonary Artery using Low Osmolar Contrast (ICD-10-PCS; 2024-12-11)
DX: A41.9 Sepsis, unspecified organism (principal); E43 Unspecified severe protein-calorie malnutrition; I50.33 Acute on chronic diastolic (congestive) heart failure; J96.01 Acute respiratory failure with hypoxia; J15.69 Pneumonia due to other Gram-negative bacteria; J15.9 Unspecified bacterial pneumonia; J44.1 Chronic obstructive pulmonary disease with (acute) exacerbation; I13.0 Hypertensive heart and chronic kidney disease with heart failure and stage 1 through stage 4 chronic kidney disease, or unspecified chronic kidney disease; Z68.1 Body mass index [BMI] 19.9 or less, adult; E87.1 Hypo-osmolality and hyponatremia; N17.9 Acute kidney failure, unspecified; Z20.822 Contact with and (suspected) exposure to COVID-19; N18.30 Chronic kidney disease, stage 3 unspecified; E78.5 Hyperlipidemia, unspecified; Z79.899 Other long term (current) drug therapy; Z72.0 Tobacco use
CPT/HCPCS: 36415; 71045; 71275; 80053; 80061; 81001; 83036; 83605; 83735; 83880; 84100; 84484; 85025; 85379; 85610; 85730; 87040; 87081; 87811; 93005; 93306; 93970; 94640; 94760; 96365; 96375; 97116; 97161; 97530; 99291; G0378; J0456; J0696; J1644; J1938; J2919; J7030; Q9967